=== PATIENT | female | born 1940 | race Two or more races ===

== ENCOUNTER 2018-01-31 22:23 | Emergency (ER) | payer OTHER ==
[~2018-01-31] VITALS: Ht 160 cm; Wt 67.6 kg
[~2018-01-31 22:23] MED LIST: AMBIEN10 MG PO; AVAPRO150 MG PO; BICARSIM FORTE125 MG PO; COLACE100 MG PO; GLUCOTROL10 MG PO; JANUVIA100 MG PO; MECLOFENAMATE S50 MG PO; NORVASC10 MG; ONGLYZA2.5 MG; TRANXENE T-TAB7.5 MG PO
== END 2018-02-01 12:50 | disposition home or self-care (01) ==
LOC: ER 22:23
DX: K52.89 Other specified noninfective gastroenteritis and colitis (principal); E13.65 Other specified diabetes mellitus with hyperglycemia

== ENCOUNTER 2019-02-01 04:16 | Emergency (ER) | payer OTHER ==
[~2019-02-01] VITALS: Ht 160 cm; Wt 66.2 kg
== END 2019-02-01 12:22 | disposition home or self-care (01) ==
LOC: ER 04:16
DX: K29.70 Gastritis, unspecified, without bleeding (principal)

== ENCOUNTER 2020-10-26 13:46 | Emergency (ER) | payer OTHER ==
[~2020-10-26] VITALS: Ht 160 cm; Wt 63.5 kg
[2020-10-26] MEDS ORDERED: GLUCOTROL10 MG PO (14:36)
[2020-10-26] MEDS ORDERED: JANUMET 50-5001 EACH PO (14:36)
[2020-10-26] MEDS ORDERED: MEDI-MECLIZINE25 MG PO (19:03)
== END 2020-10-26 19:37 | disposition home or self-care (01) ==
LOC: ER 13:46
DX: R42 Dizziness and giddiness (principal); Z20.822 Contact with and (suspected) exposure to COVID-19

== ENCOUNTER 2022-07-29 17:44 | Inpatient (IN) | payer OTHER ==
[~2022-07-29] VITALS: Ht 160 cm; Wt 70.8 kg
[~2022-07-29 17:44] MED LIST changes: +JANUMET 50-5001 EACH PO; +MEDI-MECLIZINE25 MG PO
--- NOTE | 2022-07-29 18:09 | NUR ---
SE LLAMA PACIENTE Y NO SE ENCUENTRA EN YARY
--- NOTE | 2022-07-29 18:20 | NUR ---
SE LLAMA PACIENTE Y DAWNA NO CONTESTA
--- NOTE | 2022-07-29 19:22 | NUR ---
SE LLAMA PACIENTE Y NO CONTESTA.
--- NOTE | 2022-07-29 19:27 | NUR ---
PACIENTE ALERTA Y ORIENTADA X3. REFIERE QUE ESTABA CONSTIPADA DESDE HACE UNOS CORONADO. REFIERE QUE EN LA YARY DE ESPER[place] EVACUO Y SE LE ALIVIO EL DOLOR DEL ABDOMEN. REFIERE NAUSEAS, VOMITOS Y DIARREAS.
--- NOTE | 2022-07-29 20:15 | NUR ---
SE EDUCA A PTE SOBRE [place] MEDICO ESTA REFIERE ENTENDER. SE JOON MUESTRAS DE LABORATORIO UTILIZANDO MEDIDAS ASEPTICAS. SE COLOCA H/L A PTE Y SE ADMINISTRAN MEDICAMENTOS LOS CUALES TOLERA.
[2022-08-02] MEDS ORDERED: RESTORIL30 MG (11:03)
[2022-08-02] MEDS ORDERED: VENLAFAXINE H37.5 M1 (11:04)
[2022-08-02] MEDS ORDERED: IRBESARTAN150 MG (11:04)
== END 2022-08-03 23:04 | disposition home or self-care (01) | DRG 392 ==
LOC: ER 17:44 → MEDI 07-30 01:32 → SEC-K 07-30 05:45 → MEDI 07-30 05:46
PROVIDERS: ADMIT Internal Medicine; ATTEND Internal Medicine
DX: K52.9 Noninfective gastroenteritis and colitis, unspecified (principal); N17.9 Acute kidney failure, unspecified; E11.69 Type 2 diabetes mellitus with other specified complication; I11.9 Hypertensive heart disease without heart failure; E86.0 Dehydration; Z79.84 Long term (current) use of oral hypoglycemic drugs

== ENCOUNTER 2022-09-15 17:50 | Emergency (ER) | payer OTHER ==
[~2022-09-15] VITALS: Ht 160 cm; Wt 59.0 kg
[~2022-09-15 17:50] MED LIST changes: +IRBESARTAN150 MG; +RESTORIL30 MG; +VENLAFAXINE H37.5 M1
[2022-09-16] MEDS ORDERED: MECLIZINE HCL25 MG PO (03:25)
== END 2022-09-16 03:29 ==
LOC: ER 17:50
DX: S09.90XA Unspecified injury of head, initial encounter (principal); W18.30XA Fall on same level, unspecified, initial encounter; Y93.E9 Activity, other interior property and clothing maintenance; Y92.013 Bedroom of single-family (private) house as the place of occurrence of the external cause; R42 Dizziness and giddiness; M53.3 Sacrococcygeal disorders, not elsewhere classified; Z88.5 Allergy status to narcotic agent

== ENCOUNTER 2024-01-09 09:39 | Emergency (ER) | payer OTHER ==
[~2024-01-09] VITALS: Ht 160 cm; Wt 67.1 kg
[~2024-01-09 09:39] MED LIST changes: +MECLIZINE HCL25 MG PO
[2024-01-09] MEDS ORDERED: FAMOTIDINE/PF 20 MG/2 ML VIAL IV ONE (11:45)
[2024-01-09] MEDS ORDERED: KETOROLAC TROMETHAMINE 30 MG VIAL IM ONE (11:45)
[2024-01-09 12:02] LABS: HEMATOCRIT 37.9 % (36.0-45.00); MEAN CELL VOLUME 89.6 fL (80.00-100.00); MEAN CORPUSCULAR HEMOGLOBIN 30.8 pg (27.00-32.0); MEAN CORPUSCULAR HGB CONC 34.4 g/dl (32.0-36.0); PLATELET COUNT 193 K/uL (150-450); RED BLOOD COUNT 4.22 M/uL (4.00-6.00); RED CELL DISTRIBUTION WIDTH 13.9 % (11.5-14.5)
== END 2024-01-09 13:23 | disposition home or self-care (01) ==
LOC: ER 09:39
PROVIDERS: General Practice
DX: M62.838 Other muscle spasm (principal); E11.9 Type 2 diabetes mellitus without complications; Z79.84 Long term (current) use of oral hypoglycemic drugs; I10 Essential (primary) hypertension; Z88.8 Allergy status to other drugs, medicaments and biological substances

== ENCOUNTER 2025-08-07 11:02 | Outpatient (CLI) | payer OTHER ==
[~2025-08-07 11:02] MED LIST changes: +DUI500 PO; +KETO10TA2 PO; +TRAM1TAB98 PO
== END 2025-08-07 11:04 | disposition home or self-care (01) ==
LOC: RAD 11:02
PROVIDERS: ATTEND Orthopaedic Surgery
DX: S52.532D Colles' fracture of left radius, subsequent encounter for closed fracture with routine healing (principal)